=== PATIENT | male | born 1965 | race Caucasian/White ===

== ENCOUNTER 2018-06-16 08:30 | Outpatient (RCR) | payer BC, SELFPAY ==
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
== END 2018-06-16 19:00 | disposition home or self-care (01) ==
LOC: OT 08:30
DX: S62.92XD Unspecified fracture of left hand, subsequent encounter for fracture with routine healing (principal)
CPT/HCPCS: 97110; 97140; 97166; 97530